=== PATIENT | female | born 1995 | race Caucasian/White ===

== ENCOUNTER 2021-03-13 14:15 | Outpatient (REF) | payer BC, SELFPAY ==
--- NOTE | 2021-03-13 13:00 | PAPFT_PTH ---
PATIENT: Sheri Perales LOC: [facility] U#:[id number] AGE/SX: 25/F ROOM: RE03/13/[address]: JOHN Angulo : 1995 BED: DIS: 03/13/2021 SPEC #: [id number] RECD: 03/13/21 16:37 STATUS: JONATHAN RERich #: [id number] CARLOS: 03/13/21 13:[address]: Mahogany Syed DEPT: [facility] Cytology RECD BY: Riya Merlos Tissues: 1 - CX/ENDOCX FOR PAP SMEARS Procedures: PAP THIN PREP/[facility] Screening Comments: [id number]
== END 2021-03-13 14:16 | disposition home or self-care (01) ==
LOC: LBN 14:15
PROVIDERS: Visit Provider Nurse Practitioner Family
DX: Z12.4 Encounter for screening for malignant neoplasm of cervix (principal)
CPT/HCPCS: 88142

== ENCOUNTER 2021-05-07 04:21 | Outpatient (CLI) | payer BC, SELFPAY ==
[2021-05-07 07:24] LABS: Absolute Basophil Count 0.03 10^3/uL (0.0-0.2); Absolute Eosinophil Count 0.15 10^3/uL (0.0-0.7); Absolute Lymphocyte Count 2.72 10^3/uL (1.2-3.4); Absolute Neutrophil Count 4.33 10^3/uL (1.2-6.7); Basophils % 0.4; Eosinophils % 1.9; HCT 40.6 % (36.0-46.0); HGB 13.2 g/dL (11.2-15.7); Lymphocytes % 35.2; MCH 29.1 pg (27.0-33.0); MCHC 32.5 % (32.0-36.0); MCV 89.6 fL (80-95); MPV 9.4 fL (8.0-11.0); Monocytes % 6.5; Nucleated RBC 0 %; Platelet Count 310 10^3/uL (130-400); RBC 4.53 10^6/uL (3.93-5.22); RDW-SD 39.4 fL; WBC 7.73 10^3/uL (4.4-10.8)
[2021-05-07 07:49] LABS: Hemoglobin A1C 5.1 % (<5.7)
[2021-05-07 08:31] LABS: Vitamin D 25 Total 38.3 ng/mL (30-100)
[2021-05-07 08:51] LABS: ALT 40 U/L (14-59); AST 26 U/L (15-37); Albumin 3.9 g/dL (3.4-5.0); Alkaline Phosphatase 68 U/L (46-116); Anion Gap 10.5 mmol/L (3-11); BUN 16 mg/dL (7-18); Bilirubin, Total 0.6 mg/dL (0.2-1.0); CO2 24.5 mmol/L (21.0-32.0); CREATININE 0.7 mg/dL (0.55-1.02); Calculated LDL 104 mg/dL (<100); Chloride 105 mmol/L (98-107); Cholesterol 179 mg/dL (<200); Ferritin 41 ng/mL (8-252); Glucose 92 mg/dL (74-106); HDL Cholesterol 65 mg/dL (40-60); Sodium 140 mmol/L (136-145); TSH 3.72 uIU/mL (0.36-3.74); Total Protein 6.8 g/dL (6.4-8.2); Triglyceride 53 mg/dL (<150); Vitamin B12 279 pg/mL (193-986)
[2021-05-07 09:11] LABS: FREE T4 0.95 ng/dL (0.76-1.46)
[2021-05-07 17:00] LABS: T3,Free 3.8 pg/mL (2.8-5.3)
[2021-05-08 10:22] LABS: Lyme Ab w Rflx to Lyme Confirm Negative (Negative)
[2021-05-08 15:12] LABS: ANA Interpretation Positive (Negative)
== END 2021-05-07 04:22 | disposition home or self-care (01) ==
LOC: LBO 04:21
PROVIDERS: Visit Provider Naturopath
DX: Z00.01 Encounter for general adult medical examination with abnormal findings (principal); R53.83 Other fatigue; M25.50 Pain in unspecified joint
CPT/HCPCS: 36415; 80053; 80061; 82306; 82607; 82728; 83036; 84439; 84443; 84481; 85025; 86038; 86618

== ENCOUNTER 2021-06-11 03:37 | Outpatient (CLI) | payer BC, SELFPAY ==
[2021-06-11 07:41] LABS: ESR 9 mm/hr (0-20)
[2021-06-11 16:36] LABS: CRP, High Sensitivity 2.19 mg/L (See Note); Rheumatoid Factor <8.6 IU/mL (<12.0)
[2021-06-16 13:23] LABS: dsDNA Ab, IgG <12.3 IU/mL (<30.0)
== END 2021-06-11 03:38 | disposition home or self-care (01) ==
LOC: LBO 03:37
PROVIDERS: Visit Provider Naturopath
DX: R76.8 Other specified abnormal immunological findings in serum (principal)
CPT/HCPCS: 36415; 85652; 86141; 86225; 86431

== ENCOUNTER → 2022-02-19 00:56 | Outpatient (CLI) | payer BC, SELFPAY ==
--- NOTE | 2022-02-19 07:30 | DI.RAD_ITS ---
Exam(s) XR LUMBAR SPINE COMPLETE EXAM: XR LUMBAR SPINE COMPLETE CLINICAL HISTORY: evaluate spacing and curvature,h/o recent trauma,back pain,m54.9,z87.828. TECHNIQUE: 2D digital imaging was performed. COMPARISON: No exams were available for comparison FINDINGS: Five views No evidence of listhesis but there are pars defects evident at L5 level. No disc space narrowing. F acet joints appear unremarkable at all levels. Sacroiliac joints unremarkable. IUD noted. No osseo us lesions and bone density is normal. There is no scoliosis IMPRESSION: There appear to be pars interarticularis defects at L5 level. Recommend flexion and extension latera l views to determine if there is any listhesis-slippage of L5 upon S1 during everyday activity. DATA REPOSITORY: RADIATION DOSE DELIVERED:
== END ==
PROVIDERS: PCP Student in an Organized Health Care Education/Training Program; Visit Provider Student in an Organized Health Care Education/Training Program
DX: Z87.828 Personal history of other (healed) physical injury and trauma; M47.816 Spondylosis without myelopathy or radiculopathy, lumbar region
CPT/HCPCS: 72110

== ENCOUNTER 2022-02-19 01:48 | Outpatient (CLI) | payer BC, SELFPAY ==
[2022-02-19 09:52] LABS: ALT 37 U/L (14-59); AST 23 U/L (15-37); Alkaline Phosphatase 70 U/L (46-116); Anion Gap 10.1 mmol/L (3-11); BUN 12 mg/dL (7-18); Bilirubin, Total 0.6 mg/dL (0.2-1.0); CO2 26.9 mmol/L (21.0-32.0); CREATININE 0.8 mg/dL (0.55-1.02); Calcium 8.7 mg/dL (8.5-10.1); Calculated LDL 97 mg/dL (<100); Chloride 106 mmol/L (98-107); Cholesterol 171 mg/dL (<200); Glucose 85 mg/dL (74-106); HDL Cholesterol 66 mg/dL (40-60); Sodium 143 mmol/L (136-145); Total Protein 6.7 g/dL (6.4-8.2); Triglyceride 44 mg/dL (<150)
== END 2022-02-19 01:49 | disposition home or self-care (01) ==
LOC: LBO 01:53
PROVIDERS: PCP Student in an Organized Health Care Education/Training Program; Visit Provider Student in an Organized Health Care Education/Training Program
DX: K90.9 Intestinal malabsorption, unspecified (principal); E86.0 Dehydration; Z13.220 Encounter for screening for lipoid disorders
CPT/HCPCS: 36415; 80053; 80061

== ENCOUNTER → 2022-05-28 00:28 | Outpatient (CLI) | payer BC, SELFPAY ==
--- NOTE | 2022-05-28 07:00 | DI.RAD_ITS ---
Exam(s) XR LUMBAR SPINE FLEX/EXT ONLY EXAM: XR LUMBAR SPINE FLEX/EXT ONLY CLINICAL HISTORY: f/u abnl previous xr,h/o trauma,back pain,r93.7,z87.828,m54.9 TECHNIQUE: Flexion and extension lateral views were performed. COMPARISON: CR XR LUMBAR SPINE COMPLETE from 02/19/2022 FINDINGS: The bony detail is limited by artifact. The pars defects noted on the prior exam are not well seen on the current study. The disc spaces are well maintained. The vertebral bodies are normal in heigh t. There is no subluxation with flexion or extension. IMPRESSION: No evidence of spondylolisthesis with flexion or extension.
== END ==
PROVIDERS: PCP Student in an Organized Health Care Education/Training Program; Visit Provider Student in an Organized Health Care Education/Training Program
DX: M54.9 Dorsalgia, unspecified (principal); R93.7 Abnormal findings on diagnostic imaging of other parts of musculoskeletal system; Z87.828 Personal history of other (healed) physical injury and trauma
CPT/HCPCS: 72120

== ENCOUNTER 2022-12-24 01:27 | Outpatient (CLI) | payer BC, SELFPAY ==
[2022-12-24 15:03] LABS: Panorama Kit Sent via Fed Ex
[2022-12-24 15:07] LABS: Abs Immature Grans 0.03 10^3/uL (0.0-0.06); Absolute Basophil Count 0.02 10^3/uL (0.0-0.2); Absolute Eosinophil Count 0.12 10^3/uL (0.0-0.7); Absolute Lymphocyte Count 2.42 10^3/uL (1.2-3.4); Absolute Monocyte Count 0.57 10^3/uL (0.1-0.8); Absolute Neutrophil Count 6.73 10^3/uL (1.2-6.7); Basophils % 0.2; Eosinophils % 1.2; HCT 34.5 % (36.0-46.0); HGB 11.8 g/dL (11.2-15.7); Immature Grans % 0.3; Lymphocytes % 24.5; MCH 29.6 pg (27.0-33.0); MCHC 34.2 % (32.0-36.0); MCV 87 fL (80-95); MPV 9.3 fL (8.0-11.0); Monocytes % 5.8; Platelet Count 332 10^3/uL (130-400); RBC 3.98 10^6/uL (3.93-5.22); RDW 12.2 % (11.7-14.6); WBC 9.89 10^3/uL (4.4-10.8)
[2022-12-24 15:20] LABS: Glucose,1 Hr (Glucola) 98 mg/dL (80-140)
[2022-12-27 09:11] LABS: Hepatitis B Surface Ag Negative (Negative)
[2022-12-27 09:51] LABS: Hepatitis C Ab w Rflx HCV PCR Negative (Negative)
[2022-12-27 10:03] LABS: HIV-1/2 Ag & Ab Screen Negative (Negative)
[2022-12-27 11:04] LABS: Varicella IgG Antibody Positive (See Note)
[2022-12-27 11:08] LABS: Rubella IgG Ab (UVM) Positive (See Note)
[2022-12-28 20:03] LABS: Syphilis IgG w/Reflex Nonreactive (Nonreactive)
[2022-12-29 23:44] LABS: Specimen WB Whole Blood
[2023-01-12 16:54] LABS: Specimen WB Whole Blood
== END 2022-12-24 01:28 | disposition home or self-care (01) ==
LOC: LBO 01:28
PROVIDERS: Advanced Practice Midwife; PCP Student in an Organized Health Care Education/Training Program; Visit Provider Advanced Practice Midwife
DX: Z34.91 Encounter for supervision of normal pregnancy, unspecified, first trimester (principal); Z36.89 Encounter for other specified antenatal screening; Z3A.10 10 weeks gestation of pregnancy
CPT/HCPCS: 36415; 81220; 81222; 81329; 82950; 86787; 86803; 86850; 86900; 86901; 87340; 87389; 85025; 86762; 86780

== ENCOUNTER 2022-12-24 14:47 | Outpatient (REF) | payer BC, SELFPAY ==
[2022-12-24 18:43] LABS: *AMPHETAMINES SCREEN URINE Negative (Negative); *BARBITURATES SCREEN URINE Negative (Negative); *BENZODIAZEPINES SCREEN URINE Negative (Negative); Cannabinoids THC Negative (Negative); Cocaine Screen,Urine Negative (Negative); METHADONE URINE SCREEN Negative (Negative); OPIATES URINE SCREEN Negative (Negative); Tricyclic Antidepressants Negative (Negative)
[2022-12-27 12:56] LABS: Chlamydia Result Negative (Negative); GC Result Negative (Negative)
[2022-12-30 10:13] LABS: Buprenorphine Negative ng/mL (Cutoff: 5.0); Norbuprenorphine Negative ng/mL (Cutoff: 2.5)
== END 2022-12-24 14:48 | disposition home or self-care (01) ==
LOC: LBN 14:47
PROVIDERS: PCP Student in an Organized Health Care Education/Training Program; Visit Provider Advanced Practice Midwife
DX: Z34.91 Encounter for supervision of normal pregnancy, unspecified, first trimester (principal); Z3A.10 10 weeks gestation of pregnancy
CPT/HCPCS: 80307; 80348; 87491; 87591; 87086

== ENCOUNTER 2023-04-01 01:00 | Outpatient (CLI) | payer BC, SELFPAY ==
--- NOTE | 2023-04-01 08:00 | DI.MRI_ITS ---
Exam(s) MR LUMBAR SPINE WO EXAM: MR LUMBAR SPINE WO CLINICAL HISTORY: r/o pars defect; sp stenosis, impingement; tear; LUMBAR PAIN, RADICULOPATHY. TECHNIQUE: Multiplanar multisequence MRI of the Lumbar spine was performed. COMPARISON: CR XR LUMBAR SPINE COMPLETE from 02/19/2022 CR XR LUMBAR SPINE FLEX/EXT ONLY from 05/28/2022 FINDINGS: Bones: The last intervertebral disc space is designated the L5/S1 level for the numbering purpose of this examination. The vertebral body heights are well maintained. Alignment is satisfactory. There is disc desiccation at L4-5 and L5-S1. There is unilateral right L5 spondylolysis. No spondylolisthe sis is seen. Cord: The conus tip ends at the T12 level. It is of normal size and signal intensity. T12-L1: No disc herniations or bulges are present. No central spinal canal or neural foraminal stenos is. L1-2: No disc herniations or bulges are present. No central spinal canal or neural foraminal stenosis . L2-3: No disc herniations or bulges are present. No central spinal canal or neural foraminal stenosis . L3-4: No disc herniations or bulges are present. No central spinal canal or neural foraminal stenosis . L4-5: There is a central disc herniation. There is mild extrusion posterior to the L5 vertebral body . There does appear to be mild compression of both L5 nerve roots at this level. No central spinal canal or neural foraminal stenosis. L5-S1: There is a mild diffuse disc bulge. No central spinal canal or neural foraminal stenosis. Soft tissues: The visualized SI joints and sacrum are well maintained. The paraspinal soft tissues ar e unremarkable. IMPRESSION: 1. Unilateral right L5 spondylolysis without spondylolisthesis. 2. Central disc herniation with extrusion at L4-5 which does mildly compress both L5 nerve roots. 3. Degenerative disc disease at L5-S1 without central spinal canal or neural foraminal stenosis. DATA REPOSITORY:
== END 2023-04-01 01:20 ==
LOC: DI 01:00
PROVIDERS: PCP Student in an Organized Health Care Education/Training Program; Visit Provider Student in an Organized Health Care Education/Training Program
DX: M43.06 Spondylolysis, lumbar region; M54.16 Radiculopathy, lumbar region
CPT/HCPCS: 72148

== ENCOUNTER 2023-04-20 02:38 | Outpatient (CLI) | payer BC, SELFPAY ==
[2023-04-20 15:17] LABS: HCT 33.8 % (36.0-46.0); HGB 11.6 g/dL (11.2-15.7); MCH 30.3 pg (27.0-33.0); MCHC 34.3 % (32.0-36.0); MCV 88 fL (80-95); MPV 9.1 fL (8.0-11.0); Platelet Count 294 10^3/uL (130-400); RBC 3.83 10^6/uL (3.93-5.22); RDW 12.3 % (11.7-14.6); RDW-SD 39.6 fL
[2023-04-20 15:30] LABS: Glucose,1 Hr (Glucola) 86 mg/dL (80-140)
== END 2023-04-20 02:39 | disposition home or self-care (01) ==
LOC: LBO 02:38
PROVIDERS: PCP Student in an Organized Health Care Education/Training Program; Visit Provider Advanced Practice Midwife
DX: Z34.92 Encounter for supervision of normal pregnancy, unspecified, second trimester (principal); Z3A.27 27 weeks gestation of pregnancy
CPT/HCPCS: 36415; 82950; 85027

== ENCOUNTER 2023-04-27 04:17 | Outpatient (CLI) | payer BC, SELFPAY ==
[2023-04-27 17:30] LABS: Anion Gap 13.2 mmol/L (3-11); BUN 12 mg/dL (7-18); CO2 23.8 mmol/L (21.0-32.0); CREATININE 0.7 mg/dL (0.55-1.02); Chloride 103 mmol/L (98-107); Estimated GFR 119.99 (mL/min/1.73m2); Glucose 80 mg/dL (74-106); Potassium 3.5 mmol/L (3.5-5.1); Sodium 140 mmol/L (136-145); Vitamin B12 239 pg/mL (193-986)
[2023-04-27 17:33] LABS: Folate > 20.0 ng/mL (8.6-20.0)
[2023-05-20 09:48] LABS: Rabies Antibody Endpoint 13.1 IU/mL
== END 2023-04-27 04:18 | disposition home or self-care (01) ==
LOC: LBO 04:17
PROVIDERS: PCP Student in an Organized Health Care Education/Training Program; Visit Provider Student in an Organized Health Care Education/Training Program
DX: E53.8 Deficiency of other specified B group vitamins (principal); G62.9 Polyneuropathy, unspecified; Z20.3 Contact with and (suspected) exposure to rabies; Z00.00 Encounter for general adult medical examination without abnormal findings; Z91.89 Other specified personal risk factors, not elsewhere classified; O99.283 Endocrine, nutritional and metabolic diseases complicating pregnancy, third trimester; Z3A.28 28 weeks gestation of pregnancy; O99.353 Diseases of the nervous system complicating pregnancy, third trimester
CPT/HCPCS: 36415; 80048; 86317; 82607; 82746